=== PATIENT | female | born 1970 | race Two or more races ===

== ENCOUNTER 2020-11-13 15:50 | Emergency (ER) | payer MEDICAID ==
[~2020-11-13] VITALS: Ht 157.5 cm; Wt 45.0 kg
[2020-11-13] MEDS ORDERED: KETOROLAC 60MG/2ML VIAL IM ONE (18:00)
[2020-11-13] MEDS ORDERED: IBUP-2029 MT (19:08)
[2020-11-13] MEDS ORDERED: CYCL10TA7 MT (19:10)
[2020-11-13 19:39] VITALS: BP 110/51
== END 2020-11-13 19:40 | disposition home or self-care (01) ==
LOC: ER 15:50
DX: M54.89 Other dorsalgia (principal); W01.0XXA Fall on same level from slipping, tripping and stumbling without subsequent striking against object, initial encounter; Y93.89 Activity, other specified; Y92.89 Other specified places as the place of occurrence of the external cause
CPT/HCPCS: 72100; 99283; J1885

== ENCOUNTER 2023-09-03 09:21 | Emergency (ER) | payer MEDICAID ==
[~2023-09-03] VITALS: Ht 157.5 cm; Wt 58.0 kg
[~2023-09-03 09:21] MED LIST: CYCL10TA21 MT; IBUP-2029 MT
[2023-09-03 09:25] VITALS: O2SAT 100
[2023-09-03 10:09] LABS: BASOPHILS % 0.3 % (0.0-2.0); EOSINOPHILS % 0.4 % (0.0-5.0); HEMATOCRIT. 39.4 % (36.0-48.0); HEMOGLOBIN. 13.5 g/dL (12.0-16.0); LYMPHOCYTES % 13.9 % (20.0-50.0); MEAN CORPUSCULAR HEMOGLOBIN 31.2 pg (28.0-32.0); MEAN CORPUSCULAR HGB CONC 34.3 g/dL (31.0-37.0); MEAN CORPUSCULAR VOLUME 90.9 fL (81.0-99.0); MEAN PLATELET VOLUME 8.2 fl (7.4-10.4); MONOCYTES % 5.3 % (2.0-8.0); NEUTROPHILS % 80.1 % (40.0-76.0); PLATELET 265 x1000/uL (130-400); RED BLOOD CELL COUNT 4.33 mill/uL (4.2-5.4); WHITE BLOOD COUNT 8.4 x1000/uL (4.5-11.0)
[2023-09-03 10:25] LABS: ALANINE AMINOTRANSFERASE 18 IU/L (10-49); ALBUMIN 4.4 g/dL (3.2-4.8); ASPARTATE AMINOTRANSFERASE 27 IU/L (<34); BILIRUBIN TOTAL 1.1 mg/dL (0.1-1.0); CALCIUM 9.4 mg/dL (8.7-10.4); CARBON DIOXIDE 25 mEq/L (21-32); CHLORIDE 102 mEq/L (98-107); CREATININE 0.5 mg/dL (0.6-1.0); GLUCOSE 122 mg/dL (70-105); POTASSIUM 3.9 mEq/L (3.5-5.1); PROTEIN TOTAL 7.2 g/dL (6.0-8.3); SODIUM 136 mEq/L (136-145); UREA NITROGEN BLOOD 16 mg/dL (9-23)
[2023-09-03 10:27] LABS: CLARITY URINE CLEAR (CLEAR); COLOR URINE YELLOW (YELLOW); GLUCOSE URINE NEGATIVE (NEGATIVE); KETONES URINE 1+ (NEGATIVE); LEUKOCYTE ESTERASE URINE 1+ (NEGATIVE); NITRITE URINE NEGATIVE (NEGATIVE); OCCULT BLOOD URINE TRACE (NEGATIVE); PROTEIN URINE NEGATIVE (NEGATIVE); SPECIFIC GRAVITY URINE 1.022 (1.005-1.030)
[2023-09-03 10:28] LABS: TROPONIN I HIGH SENSITIVITY < 4 ng/L (3.0-34)
[2023-09-03 10:46] LABS: SQUAMOUS EPITHELIAL CELL URINE FEW /lpf (RARE/1+)
[2023-09-03 10:47] LABS: BACTERIA URINE TRACE; WBC URINE 0-2 /hpf (0-2)
[2023-09-03 10:48] LABS: RBC URINE 0-2 /hpf (0-2)
[2023-09-03 13:00] LABS: HCG SCREEN POSITIVE
[2023-09-03] MEDS ORDERED: IBUP-2029 MT (15:55)
[2023-09-03 23:01] VITALS: BP 114/55; PULSE 60; RESP 20; TEMP 97.7
== END 2023-09-03 23:07 | disposition home or self-care (01) ==
LOC: ER 09:21
DX: K56.7 Ileus, unspecified (principal); Z98.890 Other specified postprocedural states
CPT/HCPCS: 36415; 74176; 80053; 81003; 81025; 84484; 84702; 84703; 85025; 93005; 99284

== ENCOUNTER 2024-01-28 06:47 | Emergency (ER) | payer MEDICAID ==
[~2024-01-28] VITALS: Ht 167.6 cm; Wt 59.0 kg
[2024-01-28 07:04] VITALS: O2SAT 98
[2024-01-28] MEDS: ACETAMINOPHEN 325MG TABLET PO NR (09:20)
[2024-01-28] MEDS: IBUPROFEN 400MG TABLET PO ONE (09:20)
[2024-01-28 10:22] VITALS: BP 103/57; PULSE 58; RESP 18; TEMP 98.2
== END 2024-01-28 10:33 | disposition home or self-care (01) ==
LOC: ER 06:47
DX: H92.01 Otalgia, right ear (principal)
CPT/HCPCS: 81025; 99284

== ENCOUNTER 2024-03-04 14:39 | Emergency (ER) | payer MEDICAID ==
[~2024-03-04] VITALS: Ht 165.1 cm; Wt 63.0 kg
[2024-03-04 14:49] VITALS: BP 117/73; PULSE 87; RESP 18; TEMP 97.7; O2SAT 97
[2024-03-04 15:11] LABS: BASOPHILS % 0.6 % (0.0-2.0); EOSINOPHILS % 0.8 % (0.0-5.0); HEMATOCRIT. 39.2 % (36.0-48.0); HEMOGLOBIN. 13.2 g/dL (12.0-16.0); LYMPHOCYTES % 26.8 % (20.0-50.0); MEAN CORPUSCULAR HGB CONC 33.7 g/dL (31.0-37.0); MEAN CORPUSCULAR VOLUME 92.2 fL (81.0-99.0); MONOCYTES % 5.9 % (2.0-8.0); NEUTROPHILS % 65.9 % (40.0-76.0); PLATELET 286 x1000/uL (130-400); RED BLOOD CELL COUNT 4.25 mill/uL (4.2-5.4); RED CELL DISTRIBUTION WIDTH 13.1 % (11.6-14.6); WHITE BLOOD COUNT 6.6 x1000/uL (4.5-11.0)
[2024-03-04 15:12] LABS: CHLORIDE 106 mEq/L (98-107); POTASSIUM 4.4 mEq/L (3.5-5.1); SODIUM 138 mEq/L (136-145)
[2024-03-04 15:13] LABS: CALCIUM 9.4 mg/dL (8.7-10.4); CARBON DIOXIDE 24 mEq/L (21-32)
[2024-03-04 15:18] LABS: CREATININE 0.7 mg/dL (0.6-1.0); GLUCOSE 113 mg/dL (70-105); UREA NITROGEN BLOOD 17 mg/dL (9-23)
[2024-03-04 16:35] LABS: CLARITY URINE CLEAR (CLEAR); COLOR URINE YELLOW (YELLOW); GLUCOSE URINE NEGATIVE (NEGATIVE); KETONES URINE NEGATIVE (NEGATIVE); LEUKOCYTE ESTERASE URINE 1+ (NEGATIVE); NITRITE URINE NEGATIVE (NEGATIVE); OCCULT BLOOD URINE NEGATIVE (NEGATIVE); PROTEIN URINE NEGATIVE (NEGATIVE); SPECIFIC GRAVITY URINE 1.019 (1.005-1.030); UROBILINOGEN URINE 0.2 E.U./dL (0.2-1.0)
[2024-03-04] MEDS ORDERED: CEPH500C2 MT (16:53)
[2024-03-04 16:56] LABS: BACTERIA URINE TRACE; RBC URINE NONE SEEN /hpf (0-2); SQUAMOUS EPITHELIAL CELL URINE 1+ /lpf (RARE/1+)
== END 2024-03-04 17:17 | disposition home or self-care (01) ==
LOC: ER 14:39
DX: N30.00 Acute cystitis without hematuria (principal); Z98.890 Other specified postprocedural states
CPT/HCPCS: 36415; 80048; 81003; 85025; 99283